=== PATIENT | female | born 1985 | race African-American/Black ===

== ENCOUNTER 2024-08-02 21:00 | Emergency (ER) | payer SELFPAY ==
[~2024-08-02] VITALS: Ht 165.1 cm; Wt 59.0 kg
[2024-08-02 21:03] VITALS: BP 126/82; PULSE 68; RESP 18; TEMP 36.7; O2SAT 100
== END 2024-08-02 21:06 | disposition left against medical advice (07) ==
LOC: ER 21:00
DX: Z00.8 Encounter for other general examination (principal); Z53.21 Procedure and treatment not carried out due to patient leaving prior to being seen by health care provider